=== PATIENT | male | born 1945 | race Native Hawaiian/Other Pacific Islander ===

== ENCOUNTER 2016-12-09 07:53 | Inpatient (IN) | payer MEDICARE ==
--- NOTE | 2016-12-09 09:18 | XRay Report ---
Spine and upright views of the abdomen: Abdominal pain; constipation. There are several dilated small bowel loops in the left upper and mid portions of the abdomen. No air-fluid layering. There is moderate fecal collection in the hepatic flexure region of the colon. No soft tissue mass. No free air. No significant soft tissue calcifications. No prior study for comparison. Impression: Nonspecific small bowel dilatation.
[2016-12-09 09:26] LABS: Basophils % (Auto) 0.1 % (0.0-1.8); Hematocrit 43.8 % (35.5-45.6); Hemoglobin 14.3 gm/dl (11.8-15.2); Mean Corpuscular HGB Conc 33 % (32-34); Mean Corpuscular Hemoglobin 29 pg (28-32); Mean Corpuscular Volume 88 fl (84-94); Platelet Count 178 K/mm3 (140-440); Red Blood Count 4.99 M/mm3 (3.65-5.03); Red Cell Distribution Width 13.7 % (13.2-15.2); White Blood Count 9.7 K/mm3 (4.5-11.0)
[2016-12-09 09:57] LABS: Alanine Aminotransferase 32 units/L (7-56); Albumin 4.1 g/dL (3.9-5); Albumin/Globulin Ratio 1.2 %; Alkaline Phosphatase 106 units/L (35-129); Anion Gap 21 mmol/L; BUN/Creatinine Ratio 30; Blood Urea Nitrogen 21 mg/dL (9-20); Calcium 9.5 mg/dL (8.4-10.2); Carbon Dioxide 27 mmol/L (22-30); Chloride 94.1 mmol/L (98-107); Glucose 152 mg/dL (75-100); Lipase 14 units/L (13-60); Potassium 4.2 mmol/L (3.6-5.0); Sodium 138 mmol/L (137-145); Total Protein 7.5 g/dL (6.3-8.2)
[2016-12-09] MEDS ORDERED: MORPHINE IV ONE (20:53)
[2016-12-09] MEDS ORDERED: ZOFRAN IV ONE (20:53)
--- NOTE | 2016-12-09 21:10 | Emergency Department Report ---
ED General Adult HPI - General Chief complaint: Abdominal Pain Stated complaint: ABD PAIN X 3 DAYS Time Seen by Provider: 12/09/16 20:52 Source: patient Mode of arrival: Ambulatory Limitations: Language Barrier - History of Present Illness Initial comments: Patient is a 71-year-old male past medical history of hypertension who presents with right lower quadrant abdominal pain. Patient states that he's had abdominal pain for the last 3 days he states the pain is an 6 out of 10 located in his right lower quadrant. Putting pressure on his belly makes it worse nothing makes it better. Patient also states that he has not had a bowel movement for the last 3 days. Patient denies having any nausea or vomiting. Denies having any fever. Patient is retired and he lives in [place]. - Related Data Previous Rx's Medication Instructions Recorded Last Taken Type Lisinopril [Zestril TAB] 20 mg PO QDAY #30 tablet 11/05/12 Unknown Rx Allergies Allergy/AdvReac Type Severity Reaction Status Date / Time No Known Allergies Allergy Verified 12/09/16 08:24 ED Review of Systems ROS: Stated complaint: ABD PAIN X 3 DAYS Other details as noted in HPI Constitutional: denies: chills, fever Eyes: denies: eye pain, eye discharge, vision change ENT: denies: ear pain, throat pain Respiratory: denies: cough, shortness of breath, wheezing Cardiovascular: denies: chest pain, palpitations Endocrine: no symptoms reported Gastrointestinal: abdominal pain. denies: nausea, diarrhea Genitourinary: denies: urgency, dysuria Musculoskeletal: denies: back pain, joint swelling, arthralgia Skin: denies: rash, lesions Neurological: denies: headache, weakness, paresthesias Psychiatric: denies: anxiety, depression Hematological/Lymphatic: denies: easy bleeding, easy bruising ED Past Medical Hx - Past Medical History Previous Medical History?: No Hx Hypertension: Yes - Surgical History Past Surgical History?: Yes Additional Surgical History: right knee surgery - Family History Family history: no significant - Social History Smoking Status: Never Smoker Substance Use Type: None - Medications Home Medications: Home Medications Medication Instructions Recorded Confirmed Last Taken Type Lisinopril [Zestril TAB] 20 mg PO QDAY #30 tablet 11/05/12 Unknown Rx ED Physical Exam - General Limitations: Language Barrier General appearance: alert, in no apparent distress - Head Head exam: Present: atraumatic, normocephalic - Eye Eye exam: Present: normal appearance - ENT ENT exam: Present: mucous membranes moist - Neck Neck exam: Present: normal inspection - Respiratory Respiratory exam: Present: normal lung sounds bilaterally. Absent: respiratory distress - Cardiovascular Cardiovascular Exam: Present: regular rate, normal rhythm. Absent: systolic murmur, diastolic murmur, rubs, gallop - GI/Abdominal GI/Abdominal exam: Present: tenderness (RLQ tenderness ), diminished bowel sounds - Rectal Rectal exam: Present: deferred - Extremities Exam Extremities exam: Present: normal inspection - Back Exam Back exam: Present: normal inspection - Neurological Exam Neurological exam: Present: alert, oriented X3 - Psychiatric Psychiatric exam: Present: normal affect, normal mood - Skin Skin exam: Present: warm, dry, intact, normal color. Absent: rash ED Course Vital Signs 12/09/16 12/09/16 12/10/16 08:17 22:10 01:25 Temperature 98.4 F 98.1 F 98.9 F Pulse Rate 96 H 73 79 Respiratory 18 18 18 Rate Blood Pressure 154/81 Blood Pressure 147/81 136/79 [Right] O2 Sat by Pulse 96 99 100 Oximetry - Consultations Consultation #1: 12/09/16 23:11 Discussed with general surgeon he states that patient will need to be admitted to the hospitalist service with IV antibiotics and he will do surgery the first pain in the morning. Consultation #2: 12/09/16 23:[address] Mills Hospitalist for admission. She states that the patient should go to the surgery service. She states that she will see the patient as a consult. 12/09/16 23:30 ED Medical Decision Making - Lab Data Result diagrams: 12/09/16 09:01 12/09/16 09:01 Lab Results 12/09/16 12/09/16 Range/Units 09:01 09:01 WBC 9.7 (4.5-11.0) K/mm3 RBC 4.99 (3.65-5.03) M/mm3 Hgb 14.3 (11.8-15.2) gm/dl Hct 43.8 (35.5-45.6) % MCV 88 (84-94) fl MCH 29 (28-32) pg MCHC 33 (32-34) % RDW 13.7 (13.2-15.2) % Plt Count 178 (140-440) K/mm3 Lymph % (Auto) 4.7 L (13.4-35.0) % [place] % (Auto) 7.5 H (0.0-7.3) % Eos % (Auto) 0.0 (0.0-4.3) % Baso % (Auto) 0.1 (0.0-1.8) % Lymph # 0.5 L (1.2-5.4) K/mm3 [place] # 0.7 (0.0-0.8) K/mm3 Eos # 0.0 (0.0-0.4) K/mm3 Baso # 0.0 (0.0-0.1) K/mm3 Seg Neutrophils % 87.7 H (40.0-70.0) % Seg Neutrophils # 8.5 H (1.8-7.7) K/mm3 Sodium 138 (137-145) mmol/L Potassium 4.2 (3.6-5.0) mmol/L Chloride 94.1 L (98-107) mmol/L Carbon Dioxide 27 (22-30) mmol/L Anion Gap 21 mmol/L BUN 21 H (9-20) mg/dL Creatinine 0.7 L (0.8-1.5) mg/dL Estimated GFR > 60 ml/min BUN/Creatinine Ratio 30 % Glucose 152 H (75-100) mg/dL Calcium 9.5 (8.4-10.2) mg/dL Total Bilirubin 1.40 H (0.1-1.2) mg/dL AST 23 (5-40) units/L ALT 32 (7-56) units/L Alkaline Phosphatase 106 (35-129) units/L Total Protein 7.5 (6.3-8.2) g/dL Albumin 4.1 (3.9-5) g/dL Albumin/Globulin Ratio 1.2 % Lipase 14 (13-60) units/L - Radiology Data Radiology results: report reviewed, image reviewed CT scan abdomen and pelvis: Shows acute appendicitis with abscess formation - Medical Decision Making Chief medical diagnosis: Appendicitis Differential medical diagnosis: Constipation, small bowel obstruction, gastritis I will get IV pain medication IV fluids, CBC, CMP and CT scan of abdomen ED scan shows signs of appendicitis patient will get IV antibiotics and will be admitted to the medicine service. Patient will have surgery performed on him in the morning. Discussed with patient he agrees with plan. Critical care attestation.: If time is entered above; I have spent that time in minutes in the direct care of this critically ill patient, excluding procedure time. ED Disposition Clinical Impression: Appendicitis with abscess Appendicitis Qualifiers: Appendicitis type: unspecified Qualified Code(s): K37 - Unspecified appendicitis Disposition: OP ADMIT IP TO THIS HOSP Is pt being admited?: Yes Does the pt Need Aspirin: No Condition: Stable Referrals: PRIMARY CARE, [Primary Care Provider] - 3-5 Days
[2016-12-09] MEDS ORDERED: NACL 0.9% 1000 ML 1,000 ML IV ONE (21:14)
--- NOTE | 2016-12-09 22:43 | Cat Scan Report ---
FINAL REPORT PROCEDURE: CT ABDOMEN PELVIS W CON TECHNIQUE: Computerized axial tomography of the abdomen and pelvis was performed after the IV injection of iodinated nonionic contrast. HISTORY: RLQ ABD PAIN COMPARISON: No prior studies are available for comparison. FINDINGS: Subsegmental atelectatic changes are noted involving visualized bilateral lower lungs. There is mild cardiomegaly. Small hiatal hernia is noted. 2.5 x 1.3 centimeter segment 4 of left lobe. Spleen, and adrenal glands are within normal limits. Small sub centimeter cystic lesions are identified in bilateral kidneys in the lower poles measuring up to 8 millimeters. There is no obstructive uropathy. Mild degree of free fluid is noted in the peritoneal cavity. Aorta is of normal caliber. Gallbladder is unremarkable. Appendix is severely thickened containing fluid and a a associated with severe degree of periappendiceal 1.7 x 1.5 centimeter irregular fluid collection is identified at the tip of the appendix consistent with a small abscess. There is severe degree thickening of nicole of adjacent small bowel. Moderate to severe degree prostatomegaly is noted. IMPRESSION: Findings are most consistent with acute appendicitis with perforation and small abscess formation and mild degree ascites. Small hiatal hernia. An enhancing focal lesion of left lobe liver may represent a hemangioma versus a neoplasm. A dynamic post-contrast CT scan or MRI is recommended.
[2016-12-09] MEDS ORDERED: FLAGYL 500 MG/100 ML 500 MG/100 ML BAG IV SCH (23:45)
--- NOTE | 2016-12-09 23:46 | Consultation ---
Medications and Allergies Allergies Allergy/AdvReac Type Severity Reaction Status Date / Time No Known Allergies Allergy Verified 12/09/16 08:24 Home Medications Medication Instructions Recorded Confirmed Last Taken Type Lisinopril [Zestril TAB] 20 mg PO QDAY #30 tablet 11/05/12 Unknown Rx Active Meds: Active Medications Metronidazole (Flagyl 500 Mg/100 Ml) 500 mg in 100 mls @ 200 mls/hr IV ONCE ARETHA Last Admin: 12/09/16 23:37 Dose: 200 mls/hr Cefepime HCl (Maxipime/Ns 2 Gm/100 Ml) 2 gm in 100 mls @ 200 mls/hr IV Q12HR ARETHA PRN Reason: Protocol Exam - Constitutional Vitals: Temp Pulse Resp BP Pulse Ox 98.1 F 73 18 147/81 99 12/09/16 22:10 12/09/16 22:10 12/09/16 22:10 12/09/16 22:10 12/09/16 22:10 Results - Labs CBC & Chem 7: 12/09/16 09:01 12/09/16 09:01 Labs: Abnormal lab results 12/09/16 12/09/16 Range/Units 09:01 09:01 Lymph % (Auto) 4.7 L (13.4-35.0) % [place] % (Auto) 7.5 H (0.0-7.3) % Lymph # 0.5 L (1.2-5.4) K/mm3 Seg Neutrophils % 87.7 H (40.0-70.0) % Seg Neutrophils # 8.5 H (1.8-7.7) K/mm3 Chloride 94.1 L (98-107) mmol/L BUN 21 H (9-20) mg/dL Creatinine 0.7 L (0.8-1.5) mg/dL Glucose 152 H (75-100) mg/dL Total Bilirubin 1.40 H (0.1-1.2) mg/dL
[2016-12-09 23:49] LABS: INR 1.17 (0.87-1.13)
[2016-12-09 23:50] LABS: Partial Thromboplastin Time 29.8 Sec. (24.2-36.6)
[2016-12-10] MEDS ORDERED: TYLENOL PO PRN (00:43)
--- NOTE | 2016-12-10 00:43 | History and Physical Report ---
History of Present Illness Date of examination: 12/10/16 History of present illness: 71-year-old man with a history of hypertension comes emergency room because he experienced abdominal pain that started on Monday. Pain is in the right lower quadrant which she is on the patella described, intermittent in nature, unable to fill along Chun, no radiation, intensity /10, he can identify exacerbating or relieving factors. He denies nausea, vomiting, fever Review Of Systems: Constitutional: no weight loss Ears, eyes, nose, mouth and throat: no nasal congestion, no nasal discharge, no sinus pressure, blurry vision, diplopia Neck: No neck pain or rigidity. Cardiovascular: chest pain, orthopnea, palpitations Respiratory: No shortness of breath, cough Gastrointestinal: hematochezia Genitourinary : no dysuria, frequency , hematuria Musculoskeletal: no muscle ache Integumentary: no rash, no pruritis Neurological: no parathesias, focal weakness Endocrine: no cold or heat intolerance, no polyuria or polydipsia Hematologic/Lymphatic: no easy bruising, no easy bleeding, no gland swelling Allergic/Immunologic: no urticaria, no angioedema. PAST MEDICAL HISTORY:hypertension PAST SURGICAL HISTORY: Bilateral knee FAMILY HISTORY:hypertension SOCIAL HISTORY: Denies alcohol, tobacco, drug Medications and Allergies Allergies Allergy/AdvReac Type Severity Reaction Status Date / Time No Known Allergies Allergy Verified 12/09/16 08:24 Home Medications Medication Instructions Recorded Confirmed Last Taken Type Lisinopril [Zestril TAB] 20 mg PO QDAY #30 tablet 11/05/12 12/12/16 Unknown Rx Active Meds: Active Medications Metronidazole (Flagyl 500 Mg/100 Ml) 500 mg in 100 mls @ 200 mls/hr IV ONCE ARETHA Last Admin: 12/09/16 23:37 Dose: 200 mls/hr Cefepime HCl (Maxipime/Ns 2 Gm/100 Ml) 2 gm in 100 mls @ 200 mls/hr IV Q12HR ARETHA PRN Reason: Protocol Exam - Physical Exam Narrative exam: Gen. appearance: Patient lying in bed in no acute distress HEENT: Normocephalic/atraumatic, pupils equal round reactive to light, extra alkaline movement intact, no scleral icterus, no JVD or thyromegaly or nodule, neck is supple, mucous membrane moist, no erythema or exudate Heart: S1-S2, regular rate and rhythm Lungs: Clear to auscultation bilateral breathing comfortable Abdomen: Positive bowel sounds, tender in the right lower quadrant, nondistended , no organomegaly Extremities: No edema, cyanosis, clubbing Neuro:: Oriented 3 , cranial nerves II-12 intact, speech, motor intact Skin: No rash, nodules, warm dry - Constitutional Vitals: Temp Pulse Resp BP Pulse Ox 98.1 F 73 18 147/81 99 12/09/16 22:10 12/09/16 22:10 12/09/16 22:10 12/09/16 22:10 12/09/16 22:10 Results - Labs CBC & Chem 7: 12/11/16 04:20 12/11/16 04:20 Labs: Abnormal lab results 12/09/16 12/09/16 12/09/16 Range/Units 09:01 09:01 23:21 Lymph % (Auto) 4.7 L (13.4-35.0) % [place] % (Auto) 7.5 H (0.0-7.3) % Lymph # 0.5 L (1.2-5.4) K/mm3 Seg Neutrophils % 87.7 H (40.0-70.0) % Seg Neutrophils # 8.5 H (1.8-7.7) K/mm3 PT 15.5 H (12.2-14.9) Sec. INR 1.17 H (0.87-1.13) Chloride 94.1 L (98-107) mmol/L BUN 21 H (9-20) mg/dL Creatinine 0.7 L (0.8-1.5) mg/dL Glucose 152 H (75-100) mg/dL Total Bilirubin 1.40 H (0.1-1.2) mg/dL - Imaging and Cardiology Abdominal x-ray: report reviewed CT scan - abdomen: report reviewed CT scan - pelvis: report reviewed Assessment and Plan Assessment Acute appendicitis with perforation and abscess Hypertension Plan Admit to medicine Start IV hydralazine as needed for blood pressure control Appendicitis per management of He is aware of the patient, start antibiotics per surgery DVT prophylaxis, IV morphine
[2016-12-10 01:09] LABS: Bacteria,Urine 1+ /HPF (Negative); Bilirubin,Urine NEG (Negative); Blood,Urine SM (Negative); Ketones,Urine NEG (Negative); Leukocyte Esterase,Urine NEG (Negative); Mucus,Urine 2+ /HPF; Nitrite,Urine NEG (Negative); Sperm,Urine FEW /HPF (NP)
[2016-12-10] MEDS: MAXIPIME/NS 2 GM/100 ML 2 GM/100 ML BAG IV SCH ×3 (01:22→21:56)
[2016-12-10] MEDS: NACL 0.45% 1000 ML 1,000 ML IV SCH ×2 (02:53→20:38)
[2016-12-10] MEDS: ZOSYN/NS 3.375GM/50ML 3.375 GM/50 ML BAG IV SCH ×2 (07:37→17:40)
[2016-12-10] MEDS ORDERED: ZEMURON IV ONE (08:05)
[2016-12-10] MEDS ORDERED: XYLOCAINE MPF 2% ONE (08:05)
[2016-12-10] MEDS ORDERED: SUBLIMAZE ONE (08:05)
[2016-12-10] MEDS ORDERED: DIPRIVAN 10 MG/ML IV ONE (08:05)
[2016-12-10] MEDS ORDERED: LOVENOX SUB-Q SCH (10:00)
[2016-12-10] MEDS: LOVENOX SUB-Q SCH (10:27)
--- NOTE | 2016-12-10 11:29 | Anesthesia Consultation ---
Anesthesia Consult and Med Hx Date of service: 12/10/16 - Airway Anesthetic Teeth Evaluation: Good ROM Head & Neck: Adequate Mental/Hyoid Distance: Adequate Mallampati Class: Class II Intubation Access Assessment: Probably Good - Pulmonary Exam CTA: Yes - Cardiac Exam Cardiac Exam: RRR - Pre-Operative Health Status ASA Pre-Surgery Classification: ASA2 Proposed Anesthetic Plan: General - Pulmonary Hx Smoking: No - Cardiovascular System Hx Hypertension: Yes - Endocrine Hx Non-Insulin Dependent Diabetes: No
--- NOTE | 2016-12-10 11:30 | Anesthesia Day of Surgery ---
Anesthesia Day of Surgery - Day of Surgery Patient Examined: Yes Patient H&P Reviewed: Yes Patient is NPO: Yes
[2016-12-10] MEDS ORDERED: ZOFRAN ONE (12:35)
[2016-12-10] MEDS ORDERED: ROBINUL ONE (12:35)
[2016-12-10] MEDS ORDERED: NEOSTIGMINE ONE (12:35)
[2016-12-10] MEDS ORDERED: DECADRON ONE (12:35)
[2016-12-10] MEDS ORDERED: DILAUDID ONE (12:44)
[2016-12-10] MEDS ORDERED: NORMODYNE IV ONE ×2 (13:26→15:00)
[2016-12-10] MEDS: DILAUDID IV PRN ×3 (13:31→14:17)
--- NOTE | 2016-12-10 14:30 | Operative Report ---
PREOPERATIVE DIAGNOSIS: Acute appendicitis. POSTOPERATIVE DIAGNOSIS: Acute appendicitis. No abscess was seen. There is questionable small perforation at the tip. ANESTHESIA: General. BLOOD LOSS: Minimal. FINDINGS: The patient had severely inflamed appendix that was thickened for a good 2 cm and goes all the way to the pelvic area I had to make my incision in the midline to go and reach it. DESCRIPTION OF PROCEDURE: With the patient in supine position, he was prepped and draped in usual fashion. I made a midline incision from the supraumbilical area to the infraumbilical area deep through the subcutaneous tissue all the way to the fascia, which was incised. Once I was there, I could see a severe inflammation over the area of the cecum, so slowly dissecting it, I was able to reach the base of the appendix at which point the mesoappendix was suture ligated using for that purpose 3-0 Vicryl x 2 and then the base was sutured as well with the same material interruptedly. The base about maybe 1.5 to 2 cm. I was well satisfied. I left a drain in the pelvis after irrigating the area very thoroughly. The drain was then exteriorized through the right lower quadrant. The wound was then closed in 1 layer, using for that purpose #1 Vicryl interruptedly through and through and the skin with karen. I did leave some Telfa pricilla for subcutaneous tissue and the bandage. The patient was then transferred to the recovery room in good condition. JOB# [id number] KOKO/MAIA
--- NOTE | 2016-12-10 16:08 | Post Anesthesia Evaluation ---
- Post Anesthesia Evaluation Patient Participated: Yes Airway Patent: Yes Stable Respiratory Function: Yes Nausea/Vomiting: No Temp > 96.8F: Yes Pain Manageable: Yes Adequeate Hydration: Yes Anesthesia Complications: No Block Receding Appropriately: Not Applicable Patient on Ventilator: No
[2016-12-10] MEDS ORDERED: ZOSYN/NS 3.375GM/50ML 3.375 GM/50 ML BAG IV SCH (18:00)
[2016-12-10] MEDS: ZOFRAN IV PRN (20:19)
[2016-12-10] MEDS: MORPHINE IV PRN (20:20)
[2016-12-10] MEDS: PEPCID IV SCH (20:20)
[2016-12-10] MEDS: APRESOLINE IV PRN (20:27)
--- NOTE | 2016-12-10 23:12 | Consultation ---
HISTORY OF PRESENT ILLNESS: I was called by Dr. Vandana Mills to see this patient. He was admitted last night. He is a 71-year-old man, who came because of severe pain to the right mid abdomen for about a week duration. He had nausea, but no vomiting. The pain was very severe, prompted him to be seen in the Emergency Room. He was evaluated by our ER physician and Dr. Vandana Mills as well. CAT scan was read with the radiologist this morning showed ? phlegmon in the periappendiceal area. His white count was 9.7, hematocrit was , INR is 1.17. Potassium was 4.2. Sodium was 138. The creatinine is 0.7. Total bilirubin was little bit elevated at 1.4. Alkaline phosphatase was normal. Lipase was normal. The patient was then admitted. ALLERGIES: Allergic reactions were denied. MEDICATIONS: None. PHYSICAL EXAMINATION: GENERAL: Showed a well-preserved, morbidly obese, short-statured L[place]in Mos[place]o man, I had to talk with his family as to that by our nurse on the floor. HEAD AND NECK: Negative. CHEST: Clear. HEART: Sound normal. ABDOMEN: Protuberant, moderately severe tenderness in the left mid lower abdomen. EXTREMITIES: Showed no significant edema. IMPRESSION: Acute appendicitis as seen by physical examination and by the x-ray. JOB# [id number] KOKO/MAIA
[2016-12-11] MEDS: MORPHINE IV PRN ×3 (00:51→22:03)
[2016-12-11 05:13] LABS: Basophils % (Auto) 0.1 % (0.0-1.8); Hemoglobin 12.9 gm/dl (11.8-15.2); Mean Corpuscular HGB Conc 34 % (32-34); Mean Corpuscular Hemoglobin 29 pg (28-32); Mean Corpuscular Volume 86 fl (84-94); Platelet Count 171 K/mm3 (140-440); Red Blood Count 4.42 M/mm3 (3.65-5.03); White Blood Count 10.2 K/mm3 (4.5-11.0)
[2016-12-11 05:28] LABS: Anion Gap 14 mmol/L; BUN/Creatinine Ratio 38; Blood Urea Nitrogen 30 mg/dL (9-20); Calcium 7.9 mg/dL (8.4-10.2); Carbon Dioxide 24 mmol/L (22-30); Chloride 101.5 mmol/L (98-107); Glucose 172 mg/dL (75-100); Sodium 135 mmol/L (137-145)
[2016-12-11] MEDS: PEPCID IV SCH ×2 (09:38→22:03)
[2016-12-11] MEDS: MAXIPIME/NS 2 GM/100 ML 2 GM/100 ML BAG IV SCH ×2 (09:38→22:03)
[2016-12-11] MEDS: LOVENOX SUB-Q SCH (09:38)
[2016-12-11] MEDS: NACL 0.45% 1000 ML 1,000 ML IV SCH ×2 (09:38→22:01)
--- NOTE | 2016-12-11 12:59 | Progress Note ---
Assessment and Plan Assessment and plan: 71-year-old male past medical hypertension who presented with sepsis, appendicitis with pertineal irritation Cultures reviewed by me; tracheal asprirate growing gram neg rods sepsis continue sepsis pathway Appendicitis with Peritonitis sp appy, with drain left in place continue Abx surgery input appreciated Fever on abx tracheal asprirate growing gram neg rods, fup cx UA neg, check 2V CXR HTN lisinopril on hold for now and normotensive dvt ppx lovenox History Interval history: denies abdominal pain, or cough, had fever last night Review of systems Constitutional: admits feves, no malaise, no joint pains CVS: No chest pain, no orthopnea, no dyspnea on exertion, no pedal edema GI: No abdominal pain, no diarrhea, no vomiting, no constipation Respiratory: No shortness of breath, no wheezing, no coughing Hospitalist Physical - Physical exam Narrative exam: General.: Appears well, no distress, nontoxic HEENT: Moist mucous membranes, extraocular muscles intact, no lymphadenopathy Neck: supple Cardiac: S1-S2 heard Lungs: clear to auscultation bilaterally Abdomen: soft , nontender, nondistended, bowel sounds positive Extremities: no edema clubbing or cyanosis Skin: no rash or lesions Neurologic: no gross focal deficits Psych: appropriate behavior, appropriate mood, corporative, judgment intact - Constitutional Vitals: Temp Pulse Resp BP Pulse Ox 98.4 F 100 H 18 130/67 93 12/11/16 07:47 12/11/16 07:48 12/11/16 07:47 12/11/16 07:47 12/11/16 07:48 Results - Labs CBC & Chem 7: 12/11/16 04:20 12/11/16 04:20 Labs: Laboratory Last Values WBC 10.2 K/mm3 (4.5-11.0) 12/11/16 04:20 RBC 4.42 M/mm3 (3.65-5.03) 12/11/16 04:20 Hgb 12.9 gm/dl (11.8-15.2) 12/11/16 04:20 Hct 38.0 % (35.5-45.6) 12/11/16 04:20 MCV 86 fl (84-94) 12/11/16 04:20 MCH 29 pg (28-32) 12/11/16 04:20 MCHC 34 % (32-34) 12/11/16 04:20 RDW 14.0 % (13.2-15.2) 12/11/16 04:20 Plt Count 171 K/mm3 (140-440) 12/11/16 04:20 Lymph % (Auto) 5.8 % (13.4-35.0) L 12/11/16 04:20 [place] % (Auto) 7.9 % (0.0-7.3) H 12/11/16 04:20 Eos % (Auto) 0.0 % (0.0-4.3) 12/11/16 04:20 Baso % (Auto) 0.1 % (0.0-1.8) 12/11/16 04:20 Lymph # 0.6 K/mm3 (1.2-5.4) L 12/11/16 04:20 [place] # 0.8 K/mm3 (0.0-0.8) 12/11/16 04:20 Eos # 0.0 K/mm3 (0.0-0.4) 12/11/16 04:20 Baso # 0.0 K/mm3 (0.0-0.1) 12/11/16 04:20 Seg Neutrophils % 86.2 % (40.0-70.0) H 12/11/16 04:20 Seg Neutrophils # 8.8 K/mm3 (1.8-7.7) H 12/11/16 04:20 PT 15.5 Sec. (12.2-14.9) H 12/09/16 23:21 INR 1.17 (0.87-1.13) H 12/09/16 23:21 APTT 29.8 Sec. (24.2-36.6) 12/09/16 23:21 Sodium 135 mmol/L (137-145) L 12/11/16 04:20 Potassium 4.0 mmol/L (3.6-5.0) 12/11/16 04:20 Chloride 101.5 mmol/L (98-107) 12/11/16 04:20 Carbon Dioxide 24 mmol/L (22-30) 12/11/16 04:20 Anion Gap 14 mmol/L 12/11/16 04:20 BUN 30 mg/dL (9-20) H 12/11/16 04:20 Creatinine 0.8 mg/dL (0.8-1.5) 12/11/16 04:20 Estimated GFR > 60 ml/min 12/11/16 04:20 BUN/Creatinine Ratio 38 % 12/11/16 04:20 Glucose 172 mg/dL (75-100) H 12/11/16 04:20 Calcium 7.9 mg/dL (8.4-10.2) L D 12/11/16 04:20 Total Bilirubin 1.40 mg/dL (0.1-1.2) H 12/09/16 09:01 AST 23 units/L (5-40) 12/09/16 09:01 ALT 32 units/L (7-56) 12/09/16 09:01 Alkaline Phosphatase 106 units/L (35-129) 12/09/16 09:01 Total Protein 7.5 g/dL (6.3-8.2) 12/09/16 09:01 Albumin 4.1 g/dL (3.9-5) 12/09/16 09:01 Albumin/Globulin Ratio 1.2 % 12/09/16 09:01 Lipase 14 units/L (13-60) 12/09/16 09:01 Urine Color Yellow (Yellow) 12/09/16 Unknown Urine Turbidity Clear (Clear) 12/09/16 Unknown Urine pH 6.0 (5.0-7.0) 12/09/16 Unknown Ur Specific [place] > 1.059 (1.003-1.030) H 12/09/16 Unknown Urine Protein 30 mg/dl mg/dL (Negative) 12/09/16 Unknown Urine Glucose (UA) Neg mg/dL (Negative) 12/09/16 Unknown Urine Ketones Neg mg/dL (Negative) 12/09/16 Unknown Urine Blood Sm (Negative) 12/09/16 Unknown Urine Nitrite Neg (Negative) 12/09/16 Unknown Urine Bilirubin Neg (Negative) 12/09/16 Unknown Urine Urobilinogen 4.0 mg/dL (<2.0) 12/09/16 Unknown Ur Leukocyte Esterase Neg (Negative) 12/09/16 Unknown Urine WBC (Auto) 3.0 /HPF (0.0-6.0) 12/09/16 Unknown Urine RBC (Auto) 3.0 /HPF (0.0-6.0) 12/09/16 Unknown U Epithel Cells (Auto) 6.0 /HPF (0-13.0) 12/09/16 Unknown Urine Bacteria (Auto) 1+ /HPF (Negative) 12/09/16 Unknown Urine Mucus 2+ /HPF 12/09/16 Unknown Urine Sperm Few /HPF (STEREOPLOTTER OPERATOR) 12/09/16 Unknown
[2016-12-11] MEDS ORDERED: MILK OF MAGNESIA PO ONE (15:01)
--- NOTE | 2016-12-11 15:02 | Progress Note ---
Subjective Patient Reports: Positive: feels better, still having pain, flatus, no bowel movement Narrative: doing fine No BM wound clean l pricilla out Home in AM ? Objective Vital Signs - 12hr 12/11/16 12/11/16 12/11/16 04:35 05:00 07:47 Temperature 99.2 F 98.4 F Pulse Rate 104 H 88 99 H Respiratory 20 18 Rate Blood Pressure 130/67 Blood Pressure 131/73 [Right] O2 Sat by Pulse 94 94 92 Oximetry 12/11/16 07:48 Temperature Pulse Rate 100 H Respiratory Rate Blood Pressure Blood Pressure [Right] O2 Sat by Pulse 93 Oximetry - Labs 12/11/16 04:20 12/11/16 04:20 Diabetes panel 12/11/16 Range/Units 04:20 Sodium 135 L (137-145) mmol/L Potassium 4.0 (3.6-5.0) mmol/L Chloride 101.5 (98-107) mmol/L Carbon Dioxide 24 (22-30) mmol/L BUN 30 H (9-20) mg/dL Creatinine 0.8 (0.8-1.5) mg/dL Glucose 172 H (75-100) mg/dL Calcium 7.9 L D (8.4-10.2) mg/dL Calcium panel 12/11/16 Range/Units 04:20 Calcium 7.9 L D (8.4-10.2) mg/dL Pituitary panel 12/11/16 Range/Units 04:20 Sodium 135 L (137-145) mmol/L Potassium 4.0 (3.6-5.0) mmol/L Chloride 101.5 (98-107) mmol/L Carbon Dioxide 24 (22-30) mmol/L BUN 30 H (9-20) mg/dL Creatinine 0.8 (0.8-1.5) mg/dL Glucose 172 H (75-100) mg/dL Calcium 7.9 L D (8.4-10.2) mg/dL Adrenal panel 12/11/16 Range/Units 04:20 Sodium 135 L (137-145) mmol/L Potassium 4.0 (3.6-5.0) mmol/L Chloride 101.5 (98-107) mmol/L Carbon Dioxide 24 (22-30) mmol/L BUN 30 H (9-20) mg/dL Creatinine 0.8 (0.8-1.5) mg/dL Glucose 172 H (75-100) mg/dL Calcium 7.9 L D (8.4-10.2) mg/dL
[2016-12-11] MEDS: APRESOLINE IV PRN (22:31)
[2016-12-12] MEDS: ZOFRAN IV PRN (05:25)
[2016-12-12] MEDS: APRESOLINE IV PRN (05:25)
[2016-12-12] MEDS: MORPHINE IV PRN ×2 (05:26→10:58)
[2016-12-12] MEDS: NACL 0.45% 1000 ML 1,000 ML IV SCH ×2 (07:14→17:32)
--- NOTE | 2016-12-12 07:30 | XRay Report ---
AP CHEST: HISTORY: Fever There is poor inspiratory effort. Mild atelectatic changes are identified at the right lung base. Otherwise, the lungs are clear. No pleural effusion or pneumothorax. Heart and mediastinal structures are within normal limits. IMPRESSION: No acute cardiopulmonary process identified. Mild atelectatic changes in the right lower lobe.
[2016-12-12] MEDS: PEPCID IV SCH ×2 (10:56→22:15)
[2016-12-12] MEDS: MAXIPIME/NS 2 GM/100 ML 2 GM/100 ML BAG IV SCH ×2 (10:57→22:16)
[2016-12-12] MEDS: LOVENOX SUB-Q SCH (10:57)
--- NOTE | 2016-12-12 12:59 | XRay Report ---
ABDOMEN RADIOGRAPH INDICATION: Questionable small bowel obstruction. COMPARISON: 12/09/2016 FINDINGS: Frontal abdominal radiograph demonstrates new lower abdominal midline skin karen. Ascending colon stool. Multiple air-filled small bowel loops noted throughout the abdomen, dilated up to approximately 4 cm in the left hemiabdomen. No focal suspicious calcifications or pneumatosis. Lung bases excluded. Multilevel spinal degenerative spurring. Few right hemipelvic phleboliths. CONCLUSION: Small bowel ileus versus partial obstruction radiographically in this patient with interval surgery since 3 days ago. Please correlate. Thank you for the opportunity to participate in this patient's care.
[2016-12-12] MEDS: FLAGYL 500 MG/100 ML 500 MG/100 ML BAG IV SCH ×2 (13:10→22:16)
[2016-12-12] MEDS ORDERED: MILK OF MAGNESIA PO ONE ×3 (13:16→19:00)
[2016-12-12] MEDS ORDERED: FLEET PR ONE (14:58)
--- NOTE | 2016-12-12 15:03 | Progress Note ---
Assessment and Plan /Ileus - distended loops on abdominal xry obtained today - cont NPO. enema per GS /sepsis likely from appendicitis and intrabdominal abscess CT abdomen and pelvis showed intraabdominal fluid collection and periappendicular 1.7X1.5 small abscess formation continue iv abx, on cefepime and flagyl /Appendicitis with RLQ Peritonitis sp appendectomy on 12/10/16, with drain left in place surgery input appreciated surgical asprirate growing gram neg rods, fup cx continue Abx /HTN lisinopril on hold for now and normotensive /dvt ppx lovenox Brief history: 71-year-old male past medical hypertension who presented with sepsis, appendicitis Current Meds: Generic Name Dose Route Start Last Admin Trade Name Freq PRN Reason Stop Dose Admin Acetaminophen 650 mg 12/10/16 00:43 12/11/16 16:22 Tylenol PO 650 mg Q4H PRN Administration Pain MILD(1-3)/Fever >100.5/GILMORE Enoxaparin Sodium 40 mg 12/10/16 10:00 12/12/16 10:57 Lovenox SUB-Q 40 mg QDAY@1000 ARETHA Administration Famotidine 20 mg 12/10/16 22:00 12/13/16 01:24 Pepcid IV Not Given BID ARETHA Hydralazine HCl 5 mg 12/10/16 00:43 12/12/16 05:25 Apresoline IV 5 mg Q6H PRN Administration Hypertension Hydromorphone HCl 0.5 mg 12/10/16 13:22 12/10/16 14:17 Dilaudid IV 12/13/16 13:23 0.5 mg Q10MIN PRN Administration Pain , Severe (7-10) Cefepime HCl 2 gm in 100 mls @ 200 mls/hr 12/10/16 01:00 12/12/16 22:16 Maxipime/Ns 2 Gm/100 Ml IV 200 mls/hr Q12HR ARETHA Administration Protocol Sodium Chloride 1,000 mls @ 125 mls/hr 12/10/16 01:00 12/13/16 06:11 Nacl 0.45% 1000 Ml IV 125 mls/hr DIRECT ARETHA Administration Metronidazole 500 mg in 100 mls @ 200 mls/hr 12/12/16 14:00 12/13/16 06:03 Flagyl 500 Mg/100 Ml IV 200 mls/hr Q8HR ARETHA Administration Morphine Sulfate 2 mg 12/10/16 00:43 12/12/16 10:58 Morphine IV 2 mg Q4H PRN Administration Pain, Moderate (4-6) Ondansetron HCl 4 mg 12/10/16 00:43 12/12/16 05:25 Zofran IV 4 mg Q8H PRN Administration N/V unrelieved by Evens Subjective Date of service: 12/12/16 Interval history: No BM yet. Abdomen more distended today c/o abdominal pain Objective - Exam Narrative Exam: General.: Appears well, no distress, nontoxic HEENT: Moist mucous membranes, extraocular muscles intact, no lymphadenopathy Neck: supple Cardiac: S1-S2 heard Lungs: clear to auscultation bilaterally Abdomen: soft , nontender, nondistended, bowel sounds positive Extremities: no edema clubbing or cyanosis Skin: no rash or lesions Neurologic: no gross focal deficits Psych: appropriate behavior, appropriate mood, corporative, judgment intact - Constitutional Vitals: Vital Signs - 12hr 12/12/16 12/12/16 12/12/16 04:23 04:24 05:25 Temperature 98.4 F Pulse Rate 111 H 111 H 111 H Respiratory 20 Rate Blood Pressure 157/93 157/93 O2 Sat by Pulse 95 95 Oximetry - Labs CBC & Chem 7: 12/13/16 07:29 12/13/16 07:29
--- NOTE | 2016-12-12 15:37 | Progress Note ---
Subjective Patient Reports: Positive: flatus, no bowel movement Narrative: abd ditended Flatus ? no BM KUB ? ileus , bmP OK , will keep NPO , enema Objective Vital Signs - 12hr 12/12/16 12/12/16 12/12/16 04:23 04:24 05:25 Temperature 98.4 F Pulse Rate 111 H 111 H 111 H Respiratory 20 Rate Blood Pressure 157/93 157/93 O2 Sat by Pulse 95 95 Oximetry - Labs 12/11/16 04:20 12/11/16 04:20
[2016-12-13] MEDS: PEPCID IV SCH ×3 (01:24→21:46)
[2016-12-13] MEDS: FLAGYL 500 MG/100 ML 500 MG/100 ML BAG IV SCH ×3 (06:03→21:46)
[2016-12-13] MEDS: NACL 0.45% 1000 ML 1,000 ML IV SCH (06:11)
[2016-12-13 07:46] LABS: Hematocrit 34.1 % (35.5-45.6); Hemoglobin 11.5 gm/dl (11.8-15.2); Mean Corpuscular HGB Conc 34 % (32-34); Mean Corpuscular Hemoglobin 29 pg (28-32); Mean Corpuscular Volume 86 fl (84-94); Platelet Count 205 K/mm3 (140-440); Red Blood Count 3.97 M/mm3 (3.65-5.03); Red Cell Distribution Width 14.2 % (13.2-15.2); White Blood Count 9.6 K/mm3 (4.5-11.0)
[2016-12-13 08:04] LABS: Anion Gap 12 mmol/L; BUN/Creatinine Ratio 73; Blood Urea Nitrogen 29 mg/dL (9-20); Calcium 8.1 mg/dL (8.4-10.2); Carbon Dioxide 27 mmol/L (22-30); Chloride 98.2 mmol/L (98-107); Glucose 130 mg/dL (75-100); Potassium 3.7 mmol/L (3.6-5.0); Sodium 133 mmol/L (137-145)
[2016-12-13] MEDS: MAXIPIME/NS 2 GM/100 ML 2 GM/100 ML BAG IV SCH ×2 (09:57→22:44)
[2016-12-13] MEDS: LOVENOX SUB-Q SCH (09:57)
[2016-12-13] MEDS: APRESOLINE IV PRN ×2 (09:58→23:41)
[2016-12-13] MEDS: MORPHINE IV PRN (09:58)
[2016-12-13] MEDS ORDERED: MILK OF MAGNESIA ONE (13:41)
--- NOTE | 2016-12-13 15:03 | Progress Note ---
Subjective Patient Reports: Positive: feels better, flatus, bowel movement Narrative: Pt says he had a BM , still with abd distension ,bmp OK will obtan KUB Objective Vital Signs - 12hr 12/13/16 12/13/16 12/13/16 04:34 07:39 12:19 Temperature 97.9 F 98.2 F Pulse Rate 79 75 95 H Respiratory 20 18 18 Rate Blood Pressure 160/80 165/82 177/93 O2 Sat by Pulse 94 93 95 Oximetry - Labs 12/13/16 07:29 12/13/16 07:29 Diabetes panel 12/13/16 Range/Units 07:29 Sodium 133 L (137-145) mmol/L Potassium 3.7 (3.6-5.0) mmol/L Chloride 98.2 (98-107) mmol/L Carbon Dioxide 27 (22-30) mmol/L BUN 29 H (9-20) mg/dL Creatinine 0.4 L (0.8-1.5) mg/dL Glucose 130 H (75-100) mg/dL Calcium 8.1 L (8.4-10.2) mg/dL Calcium panel 12/13/16 Range/Units 07:29 Calcium 8.1 L (8.4-10.2) mg/dL Pituitary panel 12/13/16 Range/Units 07:29 Sodium 133 L (137-145) mmol/L Potassium 3.7 (3.6-5.0) mmol/L Chloride 98.2 (98-107) mmol/L Carbon Dioxide 27 (22-30) mmol/L BUN 29 H (9-20) mg/dL Creatinine 0.4 L (0.8-1.5) mg/dL Glucose 130 H (75-100) mg/dL Calcium 8.1 L (8.4-10.2) mg/dL Adrenal panel 12/13/16 Range/Units 07:29 Sodium 133 L (137-145) mmol/L Potassium 3.7 (3.6-5.0) mmol/L Chloride 98.2 (98-107) mmol/L Carbon Dioxide 27 (22-30) mmol/L BUN 29 H (9-20) mg/dL Creatinine 0.4 L (0.8-1.5) mg/dL Glucose 130 H (75-100) mg/dL Calcium 8.1 L (8.4-10.2) mg/dL
[2016-12-13] MEDS ORDERED: MILK OF MAGNESIA PO ONE (15:30)
--- NOTE | 2016-12-13 16:14 | Progress Note ---
Assessment and Plan /Ileus - distended loops on abdominal xry - cont NPO. s/p enema per GS, repeat XRY pending /sepsis likely from appendicitis and intrabdominal abscess CT abdomen and pelvis showed intraabdominal fluid collection and periappendicular 1.7X1.5 small abscess formation continue iv abx, on cefepime and flagyl /Appendicitis with RLQ Peritonitis sp appendectomy on 12/10/16, surgery input appreciated surgical asprirate growing gram neg rods, fup final cx report continue Abx /HTN lisinopril on hold for now hydralazine as needed /dvt ppx lovenox Brief history: 71-year-old male past medical hypertension who presented with sepsis, appendicitis Current Meds: Generic Name Dose Route Start Last Admin Trade Name Freq PRN Reason Stop Dose Admin Acetaminophen 650 mg 12/10/16 00:43 12/11/16 16:22 Tylenol PO 650 mg Q4H PRN Administration Pain MILD(1-3)/Fever >100.5/GILMORE Enoxaparin Sodium 40 mg 12/10/16 10:00 12/12/16 10:57 Lovenox SUB-Q 40 mg QDAY@1000 ARETHA Administration Famotidine 20 mg 12/10/16 22:00 12/13/16 01:24 Pepcid IV Not Given BID ARETHA Hydralazine HCl 5 mg 12/10/16 00:43 12/12/16 05:25 Apresoline IV 5 mg Q6H PRN Administration Hypertension Hydromorphone HCl 0.5 mg 12/10/16 13:22 12/10/16 14:17 Dilaudid IV 12/13/16 13:23 0.5 mg Q10MIN PRN Administration Pain , Severe (7-10) Cefepime HCl 2 gm in 100 mls @ 200 mls/hr 12/10/16 01:00 12/12/16 22:16 Maxipime/Ns 2 Gm/100 Ml IV 200 mls/hr Q12HR ARETHA Administration Protocol Sodium Chloride 1,000 mls @ 125 mls/hr 12/10/16 01:00 12/13/16 06:11 Nacl 0.45% 1000 Ml IV 125 mls/hr DIRECT ARETHA Administration Metronidazole 500 mg in 100 mls @ 200 mls/hr 12/12/16 14:00 12/13/16 06:03 Flagyl 500 Mg/100 Ml IV 200 mls/hr Q8HR ARETHA Administration Morphine Sulfate 2 mg 12/10/16 00:43 12/12/16 10:58 Morphine IV 2 mg Q4H PRN Administration Pain, Moderate (4-6) Ondansetron HCl 4 mg 12/10/16 00:43 12/12/16 05:25 Zofran IV 4 mg Q8H PRN Administration N/V unrelieved by Evens Subjective Date of service: 12/13/16 Interval history: Patient had an enema yesterday, part RN he had bowel movement today but abdomen still appears to be significantly distended, Patient does complain of abdominal pain Objective - Exam Narrative Exam: General.: Appears well, no distress, nontoxic HEENT: Moist mucous membranes, extraocular muscles intact, no lymphadenopathy Neck: supple Cardiac: S1-S2 heard Lungs: clear to auscultation bilaterally Abdomen: soft , nontender, distended, hyperactive bowel sounds Extremities: no edema clubbing or cyanosis Skin: no rash or lesions Neurologic: no gross focal deficits Psych: appropriate behavior, corporative - Constitutional Vitals: Vital Signs - 12hr 12/13/16 12/13/16 12/13/16 04:34 07:39 12:19 Temperature 97.9 F 98.2 F Pulse Rate 79 75 95 H Respiratory 20 18 18 Rate Blood Pressure 160/80 165/82 177/93 O2 Sat by Pulse 94 93 95 Oximetry - Labs CBC & Chem 7: 12/13/16 07:29 12/13/16 07:29 Labs: Abnormal lab results 12/13/16 12/13/16 Range/Units 07:29 07:29 Hgb 11.5 L (11.8-15.2) gm/dl Hct 34.1 L (35.5-45.6) % Sodium 133 L (137-145) mmol/L BUN 29 H (9-20) mg/dL Creatinine 0.4 L (0.8-1.5) mg/dL Glucose 130 H (75-100) mg/dL Calcium 8.1 L (8.4-10.2) mg/dL
[2016-12-13] MEDS ORDERED: FLEET PR PRN (16:17)
[2016-12-13] MEDS: D5W/NS W/KCL 20MEQ 20 MEQ/1,000 ML BAG IV SCH (16:37)
[2016-12-13] MEDS: K-DUR PO SCH (19:28)
[2016-12-14] MEDS: FLAGYL 500 MG/100 ML 500 MG/100 ML BAG IV SCH ×3 (06:42→21:49)
[2016-12-14] MEDS: D5W/NS W/KCL 20MEQ 20 MEQ/1,000 ML BAG IV SCH (06:48)
--- NOTE | 2016-12-14 07:49 | XRay Report ---
SUPINE KUB: History: Followup small bowel obstruction, postoperative patient, appendicitis, abdominal distention. Compared to 12/12/16 at 1222 hrs. Recent surgical changes are again noted. There is moderate to large gas throughout large and small bowel loops which is most consistent with a postoperative ileus. No transition point is detected. No significant change since yesterday's exam. IMPRESSION: Findings most consistent with a postoperative ileus. No change since yesterday's exam.
[2016-12-14] MEDS ORDERED: MILK OF MAGNESIA PO ONE (08:00)
[2016-12-14 08:11] LABS: Alanine Aminotransferase 24 units/L (7-56); Albumin 2.7 g/dL (3.9-5); Alkaline Phosphatase 83 units/L (35-129); Anion Gap 14 mmol/L; BUN/Creatinine Ratio 58; Blood Urea Nitrogen 23 mg/dL (9-20); Carbon Dioxide 25 mmol/L (22-30); Chloride 104.1 mmol/L (98-107); Glucose 132 mg/dL (75-100); Sodium 139 mmol/L (137-145); Total Protein 5.3 g/dL (6.3-8.2)
--- NOTE | 2016-12-14 08:40 | XRay Report ---
SUPINE KUB: History: GI tube placement. The GI tube is coiled in the body of the stomach with its distal tip projecting over the descending duodenum. Ileus pattern is otherwise unchanged since 12/13/16 at 1509 hrs. IMPRESSION: GI tube as described. Postoperative ileus unchanged.
[2016-12-14] MEDS: MAXIPIME/NS 2 GM/100 ML 2 GM/100 ML BAG IV SCH ×2 (09:30→21:49)
[2016-12-14] MEDS: K-DUR PO SCH (09:31)
[2016-12-14] MEDS: ZESTRIL PO SCH (09:31)
[2016-12-14] MEDS: LOVENOX SUB-Q SCH (09:32)
[2016-12-14] MEDS: PEPCID IV SCH ×2 (09:32→21:52)
--- NOTE | 2016-12-14 12:16 | Progress Note ---
Assessment and Plan Assessment and plan: Ileus distended loops on abdominal xry cont NPO. Discussed with Dr. Guzman, Surgeon Sepsis likely from appendicitis and intrabdominal abscess CT abdomen and pelvis showed intraabdominal fluid collection and periappendicular 1.7X1.5 small abscess formation continue iv abx, on cefepime and flagyl Appendicitis with RLQ Peritonitis sp appendectomy on 12/10/16, surgery input appreciated surgical aspirate growing E. coli continue Cefepime and Flagyl HTN On Lisinopril hydralazine as needed DVT prphylaxis with Lovenox Full code status. History Interval history: Patient with appendicitis, s/p surgery, Less abdominal pain Had bowel movement but abdomen still distended Hospitalist Physical - Physical exam Narrative exam: Gen Appearance: Not in acute distress,sitting up in chair HEENT: normocephalic, atraumatic Neck: supple, no JVD Lungs: Clear to auscultation, no rales, no wheezing, Heart: S1 and S2 regular, no murmurs,no rubs or gallop, Abdomen: Soft , mild tender, distended, dressing over abdomen, decreased bowel sounds Extremity: No edema, no clubbing or cyanosis, Neuro : Awake,alert, oriented x 3, normal speech, moves all extremities Psych:Normal mood - Constitutional Vitals: Temp Pulse Resp BP Pulse Ox 98.5 F 89 14 161/85 94 12/14/16 08:10 12/14/16 08:12 12/14/16 08:12 12/14/16 08:12 12/14/16 08:12 Results - Labs CBC & Chem 7: 12/13/16 07:29 12/15/16 06:55 Labs: Laboratory Last Values WBC 9.6 K/mm3 (4.5-11.0) 12/13/16 07:29 RBC 3.97 M/mm3 (3.65-5.03) 12/13/16 07:29 Hgb 11.5 gm/dl (11.8-15.2) L 12/13/16 07:29 Hct 34.1 % (35.5-45.6) L 12/13/16 07:29 MCV 86 fl (84-94) 12/13/16 07:29 MCH 29 pg (28-32) 12/13/16 07:29 MCHC 34 % (32-34) 12/13/16 07:29 RDW 14.2 % (13.2-15.2) 12/13/16 07:29 Plt Count 205 K/mm3 (140-440) 12/13/16 07:29 Lymph % (Auto) 5.8 % (13.4-35.0) L 12/11/16 04:20 [place] % (Auto) 7.9 % (0.0-7.3) H 12/11/16 04:20 Eos % (Auto) 0.0 % (0.0-4.3) 12/11/16 04:20 Baso % (Auto) 0.1 % (0.0-1.8) 12/11/16 04:20 Lymph # 0.6 K/mm3 (1.2-5.4) L 12/11/16 04:20 [place] # 0.8 K/mm3 (0.0-0.8) 12/11/16 04:20 Eos # 0.0 K/mm3 (0.0-0.4) 12/11/16 04:20 Baso # 0.0 K/mm3 (0.0-0.1) 12/11/16 04:20 Seg Neutrophils % 86.2 % (40.0-70.0) H 12/11/16 04:20 Seg Neutrophils # 8.8 K/mm3 (1.8-7.7) H 12/11/16 04:20 PT 15.5 Sec. (12.2-14.9) H 12/09/16 23:21 INR 1.17 (0.87-1.13) H 12/09/16 23:21 APTT 29.8 Sec. (24.2-36.6) 12/09/16 23:21 Sodium 139 mmol/L (137-145) 12/14/16 07:18 Potassium 4.0 mmol/L (3.6-5.0) 12/14/16 07:18 Chloride 104.1 mmol/L (98-107) 12/14/16 07:18 Carbon Dioxide 25 mmol/L (22-30) 12/14/16 07:18 Anion Gap 14 mmol/L 12/14/16 07:18 BUN 23 mg/dL (9-20) H 12/14/16 07:18 Creatinine 0.4 mg/dL (0.8-1.5) L 12/14/16 07:18 Estimated GFR > 60 ml/min 12/14/16 07:18 BUN/Creatinine Ratio 58 % 12/14/16 07:18 Glucose 132 mg/dL (75-100) H 12/14/16 07:18 Calcium 8.0 mg/dL (8.4-10.2) L 12/14/16 07:18 Total Bilirubin 0.50 mg/dL (0.1-1.2) 12/14/16 07:18 AST 27 units/L (5-40) 12/14/16 07:18 ALT 24 units/L (7-56) 12/14/16 07:18 Alkaline Phosphatase 83 units/L (35-129) 12/14/16 07:18 Total Protein 5.3 g/dL (6.3-8.2) L D 12/14/16 07:18 Albumin 2.7 g/dL (3.9-5) L 12/14/16 07:18 Albumin/Globulin Ratio 1.0 % 12/14/16 07:18 Lipase 14 units/L (13-60) 12/09/16 09:01 Urine Color Yellow (Yellow) 12/09/16 Unknown Urine Turbidity Clear (Clear) 12/09/16 Unknown Urine pH 6.0 (5.0-7.0) 12/09/16 Unknown Ur Specific [place] > 1.059 (1.003-1.030) H 12/09/16 Unknown Urine Protein 30 mg/dl mg/dL (Negative) 12/09/16 Unknown Urine Glucose (UA) Neg mg/dL (Negative) 12/09/16 Unknown Urine Ketones Neg mg/dL (Negative) 12/09/16 Unknown Urine Blood Sm (Negative) 12/09/16 Unknown Urine Nitrite Neg (Negative) 12/09/16 Unknown Urine Bilirubin Neg (Negative) 12/09/16 Unknown Urine Urobilinogen 4.0 mg/dL (<2.0) 12/09/16 Unknown Ur Leukocyte Esterase Neg (Negative) 12/09/16 Unknown Urine WBC (Auto) 3.0 /HPF (0.0-6.0) 12/09/16 Unknown Urine RBC (Auto) 3.0 /HPF (0.0-6.0) 12/09/16 Unknown U Epithel Cells (Auto) 6.0 /HPF (0-13.0) 12/09/16 Unknown Urine Bacteria (Auto) 1+ /HPF (Negative) 12/09/16 Unknown Urine Mucus 2+ /HPF 12/09/16 Unknown Urine Sperm Few /HPF ([employer] MECH[employer]IC) 12/09/16 Unknown
--- NOTE | 2016-12-14 12:53 | Progress Note ---
Subjective Patient Reports: Positive: flatus, bowel movement Narrative: feels OK still with abd distension had at least 3 BMs as per RN KUB tday with extensively dilated Small Bowels . NG in ,will keep NPO Objective Vital Signs - 12hr 12/14/16 12/14/16 12/14/16 01:24 02:36 05:31 Temperature 98.1 F Pulse Rate 94 H 95 H 88 Respiratory 20 Rate Blood Pressure Blood Pressure 153/77 [Right] O2 Sat by Pulse 93 95 96 Oximetry 12/14/16 12/14/16 12/14/16 05:59 08:10 08:12 Temperature 98.7 F 98.5 F Pulse Rate 89 89 Respiratory 20 14 Rate Blood Pressure 161/85 Blood Pressure 167/86 [Right] O2 Sat by Pulse 98 94 Oximetry - Labs 12/13/16 07:29 12/14/16 07:18 Diabetes panel 12/14/16 Range/Units 07:18 Sodium 139 (137-145) mmol/L Potassium 4.0 (3.6-5.0) mmol/L Chloride 104.1 (98-107) mmol/L Carbon Dioxide 25 (22-30) mmol/L BUN 23 H (9-20) mg/dL Creatinine 0.4 L (0.8-1.5) mg/dL Glucose 132 H (75-100) mg/dL Calcium 8.0 L (8.4-10.2) mg/dL AST 27 (5-40) units/L ALT 24 (7-56) units/L Alkaline Phosphatase 83 (35-129) units/L Total Protein 5.3 L D (6.3-8.2) g/dL Albumin 2.7 L (3.9-5) g/dL Calcium panel 12/14/16 Range/Units 07:18 Calcium 8.0 L (8.4-10.2) mg/dL Albumin 2.7 L (3.9-5) g/dL Pituitary panel 12/14/16 Range/Units 07:18 Sodium 139 (137-145) mmol/L Potassium 4.0 (3.6-5.0) mmol/L Chloride 104.1 (98-107) mmol/L Carbon Dioxide 25 (22-30) mmol/L BUN 23 H (9-20) mg/dL Creatinine 0.4 L (0.8-1.5) mg/dL Glucose 132 H (75-100) mg/dL Calcium 8.0 L (8.4-10.2) mg/dL Adrenal panel 12/14/16 Range/Units 07:18 Sodium 139 (137-145) mmol/L Potassium 4.0 (3.6-5.0) mmol/L Chloride 104.1 (98-107) mmol/L Carbon Dioxide 25 (22-30) mmol/L BUN 23 H (9-20) mg/dL Creatinine 0.4 L (0.8-1.5) mg/dL Glucose 132 H (75-100) mg/dL Calcium 8.0 L (8.4-10.2) mg/dL Total Bilirubin 0.50 (0.1-1.2) mg/dL AST 27 (5-40) units/L ALT 24 (7-56) units/L Alkaline Phosphatase 83 (35-129) units/L Total Protein 5.3 L D (6.3-8.2) g/dL Albumin 2.7 L (3.9-5) g/dL
[2016-12-14] MEDS: MORPHINE IV PRN (21:49)
[2016-12-14] MEDS: APRESOLINE IV PRN (21:50)
[2016-12-15] MEDS: FLAGYL 500 MG/100 ML 500 MG/100 ML BAG IV SCH ×3 (05:38→22:13)
[2016-12-15 08:07] LABS: Anion Gap 13 mmol/L; BUN/Creatinine Ratio 48; Blood Urea Nitrogen 19 mg/dL (9-20); Calcium 7.8 mg/dL (8.4-10.2); Carbon Dioxide 23 mmol/L (22-30); Chloride 105.8 mmol/L (98-107); Glucose 106 mg/dL (75-100); Potassium 4.1 mmol/L (3.6-5.0); Sodium 138 mmol/L (137-145)
[2016-12-15] MEDS ORDERED: SODIUM PHOSPHATE 30 MMOL in NACL 0.9% 500 ML 500 ML IV ONE (09:00)
[2016-12-15] MEDS: MAXIPIME/NS 2 GM/100 ML 2 GM/100 ML BAG IV SCH ×2 (09:33→22:19)
[2016-12-15] MEDS: K-DUR PO SCH (09:34)
[2016-12-15] MEDS: LOVENOX SUB-Q SCH (09:34)
[2016-12-15] MEDS: ZESTRIL PO SCH (09:35)
[2016-12-15] MEDS: PEPCID IV SCH ×2 (09:35→22:07)
--- NOTE | 2016-12-15 11:16 | XRay Report ---
ABDOMEN RADIOGRAPHS INDICATION: Postop. COMPARISON: Yesterday. FINDINGS: Frontal abdominal radiograph, 10:25 AM, 12/15/2016 again demonstrates air-filled small bowel loops predominantly in the left hemiabdomen measuring up to approximately 3.2 cm caliber. Some colonic air also felt present. Lesser bowel gaseous distention in the right lower quadrant. Upper abdomen, including the lung bases, excluded from the superior radiographic margin. Probable esophagogastric tube removal. Lower abdominal midline skin karen again noted. Stable right hemipelvic phleboliths and spinal degenerative changes. CONCLUSION: 1. Mild interval radiographic improvement in postoperative ileus. Please correlate. 2. Interval esophagogastric tube removal. Thank you for the opportunity to participate in this patient's care.
--- NOTE | 2016-12-15 11:37 | Progress Note ---
Subjective Narrative: some improvement on the KUB , had a BM last nite ,lytes are OK , will cont npo , Pt pull NG twice , Objective Vital Signs - 12hr 12/15/16 12/15/16 12/15/16 00:22 05:02 05:03 Temperature 97.4 F L 97.5 F L Pulse Rate 90 91 H 88 Respiratory 20 17 Rate Blood Pressure 125/69 Blood Pressure 154/53 [Right] O2 Sat by Pulse 97 94 94 Oximetry 12/15/16 12/15/16 07:18 09:35 Temperature 99.3 F Pulse Rate Respiratory 18 Rate Blood Pressure 138/75 138/75 Blood Pressure [Right] O2 Sat by Pulse Oximetry - Labs 12/13/16 07:29 12/15/16 06:55 Diabetes panel 12/15/16 Range/Units 06:55 Sodium 138 (137-145) mmol/L Potassium 4.1 (3.6-5.0) mmol/L Chloride 105.8 (98-107) mmol/L Carbon Dioxide 23 (22-30) mmol/L BUN 19 (9-20) mg/dL Creatinine 0.4 L (0.8-1.5) mg/dL Glucose 106 H (75-100) mg/dL Calcium 7.8 L (8.4-10.2) mg/dL Calcium panel 12/15/16 Range/Units 06:55 Calcium 7.8 L (8.4-10.2) mg/dL Phosphorus 2.10 L (2.5-4.5) mg/dL Pituitary panel 12/15/16 Range/Units 06:55 Sodium 138 (137-145) mmol/L Potassium 4.1 (3.6-5.0) mmol/L Chloride 105.8 (98-107) mmol/L Carbon Dioxide 23 (22-30) mmol/L BUN 19 (9-20) mg/dL Creatinine 0.4 L (0.8-1.5) mg/dL Glucose 106 H (75-100) mg/dL Calcium 7.8 L (8.4-10.2) mg/dL Adrenal panel 12/15/16 Range/Units 06:55 Sodium 138 (137-145) mmol/L Potassium 4.1 (3.6-5.0) mmol/L Chloride 105.8 (98-107) mmol/L Carbon Dioxide 23 (22-30) mmol/L BUN 19 (9-20) mg/dL Creatinine 0.4 L (0.8-1.5) mg/dL Glucose 106 H (75-100) mg/dL Calcium 7.8 L (8.4-10.2) mg/dL
--- NOTE | 2016-12-15 12:58 | Progress Note ---
Assessment and Plan Assessment and plan: Ileus X Ray done today showed mild improvement cont NPO. Discussed with Dr. Guzman, Surgeon Sepsis likely from appendicitis and intrabdominal abscess CT abdomen and pelvis showed intraabdominal fluid collection and periappendicular 1.7X1.5 small abscess formation Continue iv Cefepime and Flagyl Appendicitis with RLQ Peritonitis sp appendectomy on 12/10/16, surgery input appreciated surgical aspirate growing E. coli continue Cefepime and Flagyl HTN. Continue Lisinopril hydralazine as needed DVT prphylaxis with Lovenox Full code status. History Interval history: Patient with appendicitis, s/p surgery, Less abdominal pain Had bowel movements but abdomen still distended Hospitalist Physical - Physical exam Narrative exam: Gen Appearance: Not in acute distress,sitting up in chair HEENT: normocephalic, atraumatic Neck: supple, no JVD Lungs: Clear to auscultation, no rales, no wheezing, Heart: S1 and S2 regular, no murmurs,no rubs or gallop, Abdomen: Soft , mild tender, distended, dressing over abdomen, decreased bowel sounds Extremity: No edema, no clubbing or cyanosis, Neuro : Awake,alert, oriented x 3, normal speech, moves all extremities Psych:Normal mood - Constitutional Vitals: Temp Pulse Resp BP Pulse Ox 99.3 F 88 18 138/75 94 12/15/16 07:18 12/15/16 05:03 12/15/16 07:18 12/15/16 09:35 12/15/16 05:03 Results - Labs CBC & Chem 7: 12/13/16 07:29 12/15/16 06:55 Labs: Laboratory Last Values WBC 9.6 K/mm3 (4.5-11.0) 12/13/16 07:29 RBC 3.97 M/mm3 (3.65-5.03) 12/13/16 07:29 Hgb 11.5 gm/dl (11.8-15.2) L 12/13/16 07:29 Hct 34.1 % (35.5-45.6) L 12/13/16 07:29 MCV 86 fl (84-94) 12/13/16 07:29 MCH 29 pg (28-32) 12/13/16 07:29 MCHC 34 % (32-34) 12/13/16 07:29 RDW 14.2 % (13.2-15.2) 12/13/16 07:29 Plt Count 205 K/mm3 (140-440) 12/13/16 07:29 Lymph % (Auto) 5.8 % (13.4-35.0) L 12/11/16 04:20 [place] % (Auto) 7.9 % (0.0-7.3) H 12/11/16 04:20 Eos % (Auto) 0.0 % (0.0-4.3) 12/11/16 04:20 Baso % (Auto) 0.1 % (0.0-1.8) 12/11/16 04:20 Lymph # 0.6 K/mm3 (1.2-5.4) L 12/11/16 04:20 [place] # 0.8 K/mm3 (0.0-0.8) 12/11/16 04:20 Eos # 0.0 K/mm3 (0.0-0.4) 12/11/16 04:20 Baso # 0.0 K/mm3 (0.0-0.1) 12/11/16 04:20 Seg Neutrophils % 86.2 % (40.0-70.0) H 12/11/16 04:20 Seg Neutrophils # 8.8 K/mm3 (1.8-7.7) H 12/11/16 04:20 PT 15.5 Sec. (12.2-14.9) H 12/09/16 23:21 INR 1.17 (0.87-1.13) H 12/09/16 23:21 APTT 29.8 Sec. (24.2-36.6) 12/09/16 23:21 Sodium 138 mmol/L (137-145) 12/15/16 06:55 Potassium 4.1 mmol/L (3.6-5.0) 12/15/16 06:55 Chloride 105.8 mmol/L (98-107) 12/15/16 06:55 Carbon Dioxide 23 mmol/L (22-30) 12/15/16 06:55 Anion Gap 13 mmol/L 12/15/16 06:55 BUN 19 mg/dL (9-20) 12/15/16 06:55 Creatinine 0.4 mg/dL (0.8-1.5) L 12/15/16 06:55 Estimated GFR > 60 ml/min 12/15/16 06:55 BUN/Creatinine Ratio 48 % 12/15/16 06:55 Glucose 106 mg/dL (75-100) H 12/15/16 06:55 Calcium 7.8 mg/dL (8.4-10.2) L 12/15/16 06:55 Phosphorus 2.10 mg/dL (2.5-4.5) L 12/15/16 06:55 Magnesium 2.20 mg/dL (1.7-2.3) 12/15/16 06:55 Total Bilirubin 0.50 mg/dL (0.1-1.2) 12/14/16 07:18 AST 27 units/L (5-40) 12/14/16 07:18 ALT 24 units/L (7-56) 12/14/16 07:18 Alkaline Phosphatase 83 units/L (35-129) 12/14/16 07:18 Total Protein 5.3 g/dL (6.3-8.2) L D 12/14/16 07:18 Albumin 2.7 g/dL (3.9-5) L 12/14/16 07:18 Albumin/Globulin Ratio 1.0 % 12/14/16 07:18 Lipase 14 units/L (13-60) 12/09/16 09:01 Urine Color Yellow (Yellow) 12/09/16 Unknown Urine Turbidity Clear (Clear) 12/09/16 Unknown Urine pH 6.0 (5.0-7.0) 12/09/16 Unknown Ur Specific [place] > 1.059 (1.003-1.030) H 12/09/16 Unknown Urine Protein 30 mg/dl mg/dL (Negative) 12/09/16 Unknown Urine Glucose (UA) Neg mg/dL (Negative) 12/09/16 Unknown Urine Ketones Neg mg/dL (Negative) 12/09/16 Unknown Urine Blood Sm (Negative) 12/09/16 Unknown Urine Nitrite Neg (Negative) 12/09/16 Unknown Urine Bilirubin Neg (Negative) 12/09/16 Unknown Urine Urobilinogen 4.0 mg/dL (<2.0) 12/09/16 Unknown Ur Leukocyte Esterase Neg (Negative) 12/09/16 Unknown Urine WBC (Auto) 3.0 /HPF (0.0-6.0) 12/09/16 Unknown Urine RBC (Auto) 3.0 /HPF (0.0-6.0) 12/09/16 Unknown U Epithel Cells (Auto) 6.0 /HPF (0-13.0) 12/09/16 Unknown Urine Bacteria (Auto) 1+ /HPF (Negative) 12/09/16 Unknown Urine Mucus 2+ /HPF 12/09/16 Unknown Urine Sperm Few /HPF (PILE HEADER) 12/09/16 Unknown
[2016-12-15] MEDS: APRESOLINE IV PRN (13:31)
[2016-12-15] MEDS: D5W/NS W/KCL 20MEQ 20 MEQ/1,000 ML BAG IV SCH (13:32)
[2016-12-15] MEDS: REGLAN IV SCH ×2 (17:27→22:07)
[2016-12-15] MEDS: MORPHINE IV PRN (22:10)
[2016-12-16] MEDS: FLAGYL 500 MG/100 ML 500 MG/100 ML BAG IV SCH ×3 (05:59→23:04)
[2016-12-16] MEDS: D5W/NS W/KCL 20MEQ 20 MEQ/1,000 ML BAG IV SCH (06:04)
[2016-12-16] MEDS: REGLAN IV SCH ×4 (09:18→23:10)
[2016-12-16] MEDS: LOVENOX SUB-Q SCH (09:19)
[2016-12-16] MEDS: ZESTRIL PO SCH (09:19)
[2016-12-16] MEDS: PEPCID IV SCH ×2 (09:19→22:00)
[2016-12-16] MEDS: K-DUR PO SCH (09:19)
--- NOTE | 2016-12-16 12:52 | Progress Note ---
Assessment and Plan 71-year-old male status post open appendectomy 12/10 for perforated appendicitis , now with ileus 1. Start clear liquids, if tolerates will consider slowly advancing diet today 2. By mouth pain control 3. If tolerating clear liquids would consider stopping IV fluids 4. continue abx 5. continue home meds 6. continue home meds 7. OOB -> ambulate 8. Incentive spirometry/deep breathing exercises Subjective Date of service: 12/16/16 Patient Reports: Positive: no new complaints, feels better, flatus, bowel movement. Negative: nausea, vomiting Narrative: Patient seen and examined at bedside. He states she has mild pain in his abdomen near the incision. He has had flatus and bowel movements. He feels slightly hungry but still does not have much of an appetite. Afebrile. The patient did not tolerate multiple NG tube and does not have one now. Objective Vital Signs - 12hr 12/16/16 12/16/16 12/16/16 04:42 07:47 07:48 Temperature 98.5 F 98.2 F Pulse Rate 76 75 74 Respiratory 20 18 Rate Blood Pressure 161/76 162/78 O2 Sat by Pulse 95 96 96 Oximetry - General physical appearance Narrative Exam: General: Awake, alert, oriented 3. No apparent distress CV: S1-S2 present Respiratory: No audible wheezes Abdomen: Soft, mildly distended, nontender. Positive bowel sounds, hypoactive. Midline incision clean dry and intact. A new dry dressing was applied. Extremities: No clubbing, cyanosis, edema - Labs 12/13/16 07:29 12/15/16 06:55
--- NOTE | 2016-12-16 14:12 | XRay Report ---
Abdomen 2 views: Compared to 12/15/16 and 12/14/16. History: Ileus. Findings: Few distended loops of small bowel with minimal air in colon. No significant interval change. Impression: No significant interval change.
[2016-12-16] MEDS: MAXIPIME/NS 2 GM/100 ML 2 GM/100 ML BAG IV SCH ×2 (15:00→22:00)
--- NOTE | 2016-12-16 15:49 | Progress Note ---
History Interval history: Patient with appendicitis, s/p surgery, Less abdominal pain, less distension Has been having bowel movements Hospitalist Physical - Constitutional Vitals: Temp Pulse Resp BP Pulse Ox 98.2 F 74 18 162/78 96 12/16/16 07:47 12/16/16 07:48 12/16/16 07:47 12/16/16 07:47 12/16/16 07:48 Results - Labs CBC & Chem 7: 12/13/16 07:29 12/15/16 06:55 Labs: Laboratory Last Values WBC 9.6 K/mm3 (4.5-11.0) 12/13/16 07:29 RBC 3.97 M/mm3 (3.65-5.03) 12/13/16 07:29 Hgb 11.5 gm/dl (11.8-15.2) L 12/13/16 07:29 Hct 34.1 % (35.5-45.6) L 12/13/16 07:29 MCV 86 fl (84-94) 12/13/16 07:29 MCH 29 pg (28-32) 12/13/16 07:29 MCHC 34 % (32-34) 12/13/16 07:29 RDW 14.2 % (13.2-15.2) 12/13/16 07:29 Plt Count 205 K/mm3 (140-440) 12/13/16 07:29 Lymph % (Auto) 5.8 % (13.4-35.0) L 12/11/16 04:20 [place] % (Auto) 7.9 % (0.0-7.3) H 12/11/16 04:20 Eos % (Auto) 0.0 % (0.0-4.3) 12/11/16 04:20 Baso % (Auto) 0.1 % (0.0-1.8) 12/11/16 04:20 Lymph # 0.6 K/mm3 (1.2-5.4) L 12/11/16 04:20 [place] # 0.8 K/mm3 (0.0-0.8) 12/11/16 04:20 Eos # 0.0 K/mm3 (0.0-0.4) 12/11/16 04:20 Baso # 0.0 K/mm3 (0.0-0.1) 12/11/16 04:20 Seg Neutrophils % 86.2 % (40.0-70.0) H 12/11/16 04:20 Seg Neutrophils # 8.8 K/mm3 (1.8-7.7) H 12/11/16 04:20 PT 15.5 Sec. (12.2-14.9) H 12/09/16 23:21 INR 1.17 (0.87-1.13) H 12/09/16 23:21 APTT 29.8 Sec. (24.2-36.6) 12/09/16 23:21 Sodium 138 mmol/L (137-145) 12/15/16 06:55 Potassium 4.1 mmol/L (3.6-5.0) 12/15/16 06:55 Chloride 105.8 mmol/L (98-107) 12/15/16 06:55 Carbon Dioxide 23 mmol/L (22-30) 12/15/16 06:55 Anion Gap 13 mmol/L 12/15/16 06:55 BUN 19 mg/dL (9-20) 12/15/16 06:55 Creatinine 0.4 mg/dL (0.8-1.5) L 12/15/16 06:55 Estimated GFR > 60 ml/min 12/15/16 06:55 BUN/Creatinine Ratio 48 % 12/15/16 06:55 Glucose 106 mg/dL (75-100) H 12/15/16 06:55 Calcium 7.8 mg/dL (8.4-10.2) L 12/15/16 06:55 Phosphorus 2.10 mg/dL (2.5-4.5) L 12/15/16 06:55 Magnesium 2.20 mg/dL (1.7-2.3) 12/15/16 06:55 Total Bilirubin 0.50 mg/dL (0.1-1.2) 12/14/16 07:18 AST 27 units/L (5-40) 12/14/16 07:18 ALT 24 units/L (7-56) 12/14/16 07:18 Alkaline Phosphatase 83 units/L (35-129) 12/14/16 07:18 Total Protein 5.3 g/dL (6.3-8.2) L D 12/14/16 07:18 Albumin 2.7 g/dL (3.9-5) L 12/14/16 07:18 Albumin/Globulin Ratio 1.0 % 12/14/16 07:18 Lipase 14 units/L (13-60) 12/09/16 09:01 Urine Color Yellow (Yellow) 12/09/16 Unknown Urine Turbidity Clear (Clear) 12/09/16 Unknown Urine pH 6.0 (5.0-7.0) 12/09/16 Unknown Ur Specific [place] > 1.059 (1.003-1.030) H 12/09/16 Unknown Urine Protein 30 mg/dl mg/dL (Negative) 12/09/16 Unknown Urine Glucose (UA) Neg mg/dL (Negative) 12/09/16 Unknown Urine Ketones Neg mg/dL (Negative) 12/09/16 Unknown Urine Blood Sm (Negative) 12/09/16 Unknown Urine Nitrite Neg (Negative) 12/09/16 Unknown Urine Bilirubin Neg (Negative) 12/09/16 Unknown Urine Urobilinogen 4.0 mg/dL (<2.0) 12/09/16 Unknown Ur Leukocyte Esterase Neg (Negative) 12/09/16 Unknown Urine WBC (Auto) 3.0 /HPF (0.0-6.0) 12/09/16 Unknown Urine RBC (Auto) 3.0 /HPF (0.0-6.0) 12/09/16 Unknown U Epithel Cells (Auto) 6.0 /HPF (0-13.0) 12/09/16 Unknown Urine Bacteria (Auto) 1+ /HPF (Negative) 12/09/16 Unknown Urine Mucus 2+ /HPF 12/09/16 Unknown Urine Sperm Few /HPF (AQUARIUM TANK ATTENDANT) 12/09/16 Unknown
[2016-12-17] MEDS: ZOFRAN IV PRN (00:20)
[2016-12-17] MEDS: FLAGYL 500 MG/100 ML 500 MG/100 ML BAG IV SCH ×2 (06:00→13:49)
[2016-12-17] MEDS: REGLAN IV SCH ×2 (08:40→11:57)
[2016-12-17 08:50] VITALS: BP 171/86
--- NOTE | 2016-12-17 09:28 | Progress Note ---
Assessment and Plan 71 yo M s/p open appendectomy 12/10, ileus - resolved 1. advance to regular diet 2. dc IVF 3. PO pain control 4. transition to PO abx 5. DVT ppx 6. ok to dc home if tolerates reg diet D/W Dr. Yi Subjective Date of service: 12/17/16 Patient Reports: Positive: no new complaints, feels better, tolerating liquids well, flatus, bowel movement Narrative: Pt seen and examined. Wants to go home. Pain is better. He is tolerating full liquids. + flatus and BM Objective Vital Signs - 12hr 12/16/16 12/16/16 12/17/16 22:00 23:30 08:00 Temperature 98.9 F 98.3 F Pulse Rate 79 78 Respiratory 18 20 18 Rate Respiratory 18 Rate [Abdominal ] Blood Pressure 159/72 171/86 [Right] O2 Sat by Pulse 97 96 Oximetry - General physical appearance Narrative Exam: Gen: AAOx3. NAD CV: S1, S2+ Resp: NO audible wheezes Abd: soft, mildly distended, NT, incision c/d/i Ext: No c/c/e - Labs 12/13/16 07:29 12/15/16 06:55
[2016-12-17] MEDS: K-DUR PO SCH (10:21)
[2016-12-17] MEDS: ZESTRIL PO SCH (10:21)
[2016-12-17] MEDS: LOVENOX SUB-Q SCH (10:22)
[2016-12-17] MEDS: PEPCID IV SCH (10:22)
[2016-12-17] MEDS: MAXIPIME/NS 2 GM/100 ML 2 GM/100 ML BAG IV SCH (11:18)
--- NOTE | 2016-12-17 14:12 | Discharge Summary ---
Providers - Providers Date of Admission: 12/10/16 00:43 Date of discharge: 12/17/16 Attending physician: JOHNNY MEDELLIN Primary care physician: JOSE GR MD Hospitalization Condition: Fair Disposition: DC-01 TO HOME OR SELFCARE Core Measure Documentation - Palliative Care Palliative Care/ Comfort Measures: Not Applicable - Core Measures Any of the following diagnoses?: none Exam - Constitutional Vitals: Temp Pulse Resp BP Pulse Ox 98.3 F 78 18 171/86 96 12/17/16 08:00 12/17/16 10:21 12/17/16 11:21 12/17/16 10:21 12/17/16 08:00 Plan Activity: advance as tolerated Diet: regular Additional Instructions: 1.Follow up with PCP or [facility] in 1 week. 2.Follow up with Dr. Guzman in office in 1 week Follow up with: PRIMARY CAREMD [Primary Care Provider] - 3-5 Days Prescriptions: Docusate Sodium [Colace] 100 mg PO BID #30 capsule HYDROcodone/APAP 5-325 [[place] 5/325] 1 each PO Q6HR PRN #12 tablet PRN Reason: Pain Pot Phosphate/Na Phosphate [Phos-Nak] 1 each PO TID 3 Days
[2016-12-17] MEDS: APRESOLINE IV PRN (14:22)
== END 2016-12-17 15:30 | disposition home or self-care (01) | DRG 853 ==
LOC: ED 07:53 → 3B-SURG 12-10 00:43
PROVIDERS: ADMIT Internal Medicine; ATTEND Internal Medicine
PROC: 0DTJ0ZZ Resection of Appendix, Open Approach (ICD-10-PCS; principal; 2016-12-10)
DX: A41.9 Sepsis, unspecified organism (principal); K35.3 Acute appendicitis with localized peritonitis; K56.7 Ileus, unspecified; I10 Essential (primary) hypertension; Z79.899 Other long term (current) drug therapy; Z82.49 Family history of ischemic heart disease and other diseases of the circulatory system
CPT/HCPCS: 36415; 71010; 74000; 74020; 74177; 80048; 80053; 81001; 83690; 83735; 84100; 85025; 85027; 85610; 85730; 87075; 87076; 87116; 87186; 88304; 93005; 93010; 96361; 96365; 96375; J0360; J0692; J1100; J1170; J1650; J2270; J2405; J2543; J2704; J2710; J2765; J3010; J7030; J7040; Q9967